=== PATIENT | female | born 1990 | race American Indian/Alaskan Native ===

== ENCOUNTER 2017-06-14 10:22 | Outpatient (CLI) | payer OTHER ==
--- NOTE | 2017-06-14 15:09 | XRay Report ---
XRAY RIGHT KNEE 4 THREE VIEWS: 06/14/17 CLINICAL: Right knee pain. FINDINGS: Normal bones, joints and soft tissues.No joint effusion. IMPRESSION: Normal.
== END 2017-06-14 10:23 | disposition home or self-care (01) ==
LOC: SPVIMAG 10:22
PROVIDERS: ATTEND Orthopaedic Surgery
DX: M25.561 Pain in right knee (principal)